=== PATIENT | male | born 1990 | race Caucasian/White ===

== ENCOUNTER 2016-10-05 12:30 | Day surgery (SDC) | payer BC ==
--- NOTE | ~2016-10-05 | OP ---
Record Of Operation [facility] [address] [place]. [address] NAME: NICOLÁS JARQUIN II : 89 STATUS : REG [facility] [place] PAT#: [id number] AGE: 25 ADM/REG DATE : 10/05/16 MR#: [id number] REPORT SERV DATE: 10/05/16 DICTATED BY: Keisha RIOS DATE: 10/05/16 REPORT STATUS : Draft TRANSCRIBED BY: KARIN DATE: 10/05/16 DATE OF PROCEDURE: PREOPERATIVE DIAGNOSIS: Multiple indeterminate penile lesions likely condyloma acuminata. POSTOPERATIVE DIAGNOSIS: Multiple indeterminate penile lesions likely condyloma acuminata. PROCEDURE: Excisional biopsy with holmium laser ablation of multiple penile lesions. SURGEON: Keisha Rios M.D. ANESTHESIA: General with LMA. COMPLICATIONS: None. DRAINS: None. BRIEF HISTORY: Mr. Jarquin is a 25-year-old white male with multiple lesions consistent with small condyloma. He tried topical therapy, but was uncomfortable with the causticity and also had incompletely treated lesions. He opted for biopsy and laser ablation in the OR. The risks of bleeding, infection, anesthesia, recurrence, and the postoperative cosmetic appearance were all discussed. There were no unanswered questions. DESCRIPTION OF PROCEDURE: Under excellent general anesthesia, the patient was prepped and draped in supine position. There were six obvious lesions and ultimately about a dozen areas were treated. I took excisional biopsies of three prominently lesions, one from the right penis, one from the right hemiscrotum, and one from the base of the right penis, and sent them for pathological examination. These areas were then treated with holmium YAG laser at a setting of 10 damico and all areas were obliterated. He was given Neosporin and will be discharged to outpatient with the following instructions. DISCHARGE INSTRUCTIONS: 1. Neosporin for 48-72 hours. 2. Follow up in my office in six weeks. 3. Call for any problems. 4. Hydrocodone 5/325 one to two p.o. q.4 hours p.r.n. pain, #15. EVELIN/KARIN Keisha Rios M.D. / [id number] Record Of [address] [address] NAME: NICOLÁS JARQUIN II : 89 STATUS : REG [facility] [place] PAT#: [id number] AGE: 25 ADM/REG DATE : 10/05/16 MR#: [id number] REPORT SERV DATE: 10/05/16 DICTATED BY: Keisha RIOS DATE: 10/05/16 REPORT STATUS : Draft TRANSCRIBED BY: KARIN DATE: 10/05/16 CC: Keisha Rios M.D.
[~2016-10-05 12:30] MED LIST: *DENIES
== END 2016-10-05 17:14 | disposition home or self-care (01) ==
LOC: SDC 12:30
PROC: 0VBSXZZ Excision of Penis, External Approach (ICD-10-PCS; principal; 2016-10-05 13:45)
DX: A63.0 Anogenital (venereal) warts (principal); J45.909 Unspecified asthma, uncomplicated; Z79.891 Long term (current) use of opiate analgesic
CPT/HCPCS: 88305; A9270-GY; J0690; J2250; J2405; J3010